=== PATIENT | male | born 1950 | race Caucasian/White ===

== ENCOUNTER 2018-01-17 18:41 | Emergency (ER) | payer OTHER ==
--- OUTSIDE RECORDS SUMMARY | 2018-01-17 18:43 | XMS REPORT | Clinical Summary ---
:1950 Author Organization [facility] Address [address] [place] [address] Care Team Providers Name Role Phone Asked, No Pcp Primary Care Provider Unavailable Allergies Active Allergy Reactions Severity Noted Date Comments No Known Drug Allergies 10/28/2015 Medications No known medications Active Problems Problem Noted Date History of rectal cancer 05/11/2017 Bleeding from anus 01/12/2016 Diarrhea 01/12/2016 Generalized abdominal pain 01/12/2016 Rectal cancer 10/28/2015 Encounters Date Type Specialty Care Team Description 12/14/2017 Hospital Encounter Radiology Yovani Whitfield MD 12/14/2017 Office Visit Cardiothoracic Yovani Whitfield Lung nodule Surgery MD Nain (Primary Dx) 12/13/2017 Telephone General Surgery Katie Whalen MA 11/21/2017 Orders Only Cardiothoracic Provider, Krista Hoyos MD 11/13/2017 Telephone Cardiothoracic Jesika Locke, Surgery MA 11/07/2017 Telephone Cardiothoracic Jesika Locke, Surgery MA 11/02/2017 Office Visit Cardiothoracic Yovani Whitfield Lung nodule Surgery MD Nain (Primary Dx) 09/29/2017 Documentation General Surgery Kassidy Vega NP-C 09/04/2017 Orders Only General Surgery Zoiegugurusamy, Rectal cancer Kassidy (Primary Dx) HARSH Edmondson 08/18/2017 Office Visit General Surgery Jacquelinesamy, Rectal cancer Kassidy (Primary Dx) HARSH Edmondson 08/18/2017 Orders Only General Surgery Kulwinder, History of rectal JOEY Hadley cancer (Primary Dx) 05/11/2017 Office Visit General Surgery Darron Shepard History of rectal MD Max cancer (Primary Dx) Kassidy Vega NP-C 02/09/2017 Office Visit General Surgery Darron Shepard Internal hemorrhoids with complication (Primary Dx); MD Max Other constipation; History of rectal cancer; Bleeding from anus after 01/16/2017 Family History Medical History Relation Name Comments Skin cancer Father No Known Problems Mother Relation Name Status Comments Father Mother Social History Tobacco Use Types Packs/Day Years Used Date Never Smoker Smokeless Tobacco: Never Used Alcohol Use Drinks/Week oz/Week Comments No Sex Assigned at Date Recorded Not on file Job Start Date Occupation Industry Not on file Not on file Not on file Travel History Travel Start Travel End No recent travel history available. Last Filed Vital Signs Vital Sign Reading Time Taken Blood Pressure 135/86 12/14/2017 9:36 AM CDT Pulse 60 12/14/2017 9:36 AM CDT Temperature 35.8 C (96.4 F) 12/14/2017 9:36 AM CDT Respiratory Rate 16 12/14/2017 9:36 AM CDT Oxygen Saturation 98% 12/14/2017 9:36 AM CDT Inhaled Oxygen Concentration - - Weight 86.3 kg (190 lb 3.2 oz) 12/14/2017 9:36 AM CDT Height 170.2 cm (5' 7") 12/14/2017 9:36 AM CDT Body Mass Index 29.79 12/14/2017 9:36 AM CDT Plan of Treatment Date Type Specialty Care Team Description 02/16/2018 Office Visit General Surgery Kassidy Vega NP-C [address] [facility] [address] [place] [id number] Health Maintenance Due Date Last Done Comments COLON CANCER SCREENING 2000 SHINGRIX VACCINE (1 of 2) 2000 ZOSTER VACCINE 2010 PNEUMOCOCCAL POLYSACCHARIDE VACCINE AGE 65 AND OVER 08/12/2015 PNEUMOCOCCAL-13 08/12/2015 INFLUENZA VACCINE 10/04/2017 Implants Implanted Type Area Computer Installer Device Shelf Model / Identifier Expiration Serial / Date Lot Stapler Endoscpc 18cm 20.4x29mm Intralmnl Crvd Circlr Ltxf - [id number] Surgical N/A: N/A ETHICON ENDO [id number] / Implanted: 10/28/2015 (Quantity not on file) Implants; SURGERY-ED / Expanders; Extenders; Surgical Wires Procedures Procedure Name Priority Date/Time Associated Comments Diagnosis CT CHEST W CONTRAST Routine 11/20/2017 CT CHEST W CONTRAST STAT 08/31/2017 9:50 AM History of rectal Results for this ABDOMEN W CONTRAST CDT cancer procedure are in PELVIS W CONTRAST the results section. ESTIMATED GFR Routine 08/31/2017 9:06 AM Results for this CDT procedure are in the results section. POC CREATININE Routine 08/31/2017 9:06 AM Results for this CDT procedure are in the results section. after 01/16/[address] Chest W Contrast (11/20/2017) Narrative Performed At CT Chest W Contrast Abdomen W Contrast Pelvis W Contrast (08/31/2017 9:50 AM CDT) Narrative Performed At EXAMINATION: [facility] CT CHEST W CONTRAST ABDOMEN W CONTRAST PELVIS W CONTRAST CLINICAL HISTORY: Z85.048 Personal history of other malignant neoplasm of rectumrectosigmoid junctionand anus, History of rectal cancer TECHNIQUE: Prior to and following intravenous injection of approximately 100 cc of Omnipaque 300, multiple helical axial images were obtained of the chest, abdomen and pelvis. Additional sagittal and coronal reformat images were acquired. All CT scan performed using radiation dose reduction techniques. Technical factors are evaluated and adjusted to ensure appropriate moderation of exposure. Automated dose management technology is applied to adjust the radiation dose to minimize expose whileachieving a diagnostic quality image. COMPARISON: None. FINDINGS: Chest: An approximately 4.7 mm right upper lobe pulmonary nodule is seen, series 3 image #59. There are 2 right middle lobe pulmonary nodules, series 2 image #64 and 74, with the larger nodule measuring approximately 4.7 mm. Two approximately 4 mm right lower lobe pulmonary nodules are seen, series 3 image #72. Scattered approximately 2 to 4 mm left lower lobe pulmonary nodules are seen, series 3 image #70, 74, 80 and 81. No pulmonary masses I5. There is no evidence of consolidation or pleural effusion.. The heart is normal in size. No pericardial effusion is seen. Scattered atherosclerotic coronary arteries calcifications are noted. Scattered atherosclerotic calcifications of the ectatic thoracic aorta is seen..However, there is no evidence of aortic aneurysm. The pulmonary vasculature is unremarkable. No evidence of mediastinum, hilar or axillary pathologic lymphadenopathy. Soft tissue and osseous structures are unremarkable. Abdomen: Liver: There is no intrahepatic biliary dilatation or enhancing mass. The liver is normal in attenuation, contour and size. Gallbladder: The gallbladder is mostly contracted but otherwise unremarkable.. Pancreas: The pancreas is normal in caliber, contour and attenuation. No pancreatic duct dilatation is seen. Spleen: Unremarkable. Kidneys and ureters: The kidneys function symmetrically. There is no enhancing renal lesion. No hydronephrosis or renal stone. The ureters are normal in course and caliber. Adrenal glands: Unremarkable. GI tract: A small right pelvic wall incisional hernia containing portion of small bowel loops is seen. There is no evidence of strangulation or bowel obstruction. The small bowel is otherwise normal in caliber. Postsurgical change of rectum and anastomosis is seen. No residual or recurrent tumor is seen. Scattered retained fecal debris is interbody colon. The colon is otherwise unremarkable. The appendix is normal. The stomach is unremarkable.. Ascites: None. Vasculature: Scattered atherosclerotic disease is seen abdomen vessels. Bones: Moderate multilevel degenerative change of the lumbar spine is noted Pelvis: Bladder: The urinary bladder is unremarkable. Genitalia:. An approximately 16 x 10 x 8.8 cm right hydrocele is noted. Limited evaluation of the prostate gland is unremarkable. Bones: Mixed sclerotic and lucencies are seen of the sacrum including sacral hernandes,, worrisome for metastasis. Retroperitoneum: Scattered atherosclerotic disease of the abdominal aorta is noted. The abdominal aorta is otherwise normal in course and caliber. The visceral and mesenteric vascular branches absent pattern.No retroperitoneal or mesenteric lymphadenopathy is seen.. IMPRESSION: Scattered indeterminate bilateral pulmonary nodules, pulmonary metastasis cannot be entirely excluded. Recommend clinical correlation and short follow-up with CT chest in 3 months for further evaluation. Findings worrisome for sacral metastasis. Recommend whole-body bone scan for further evaluation. No CT evidence of visceral metastasis or pathologic lymphadenopathy. Incidental note of a large right hydrocele. [facility] [id number] Procedure Note Interface, Radiology Results - 08/31/2017 11:32 AM CDT EXAMINATION: CT CHEST W CONTRAST ABDOMEN W CONTRAST PELVIS W CONTRAST CLINICAL HISTORY: Z85.048 Personal history of other malignant neoplasm of rectum rectosigmoid junction and anus, History of rectal cancer TECHNIQUE: Prior to and following intravenous injection of approximately 100 cc of Omnipaque 300, multiple helical axial images were obtained of the chest, abdomen and pelvis. Additional sagittal and coronal reformat images were acquired. All CT scan performed using radiation dose reduction techniques. Technical factors are evaluated and adjusted to ensure appropriate moderation of exposure. Automated dose management technology is applied to adjust the radiation dose to minimize expose while achieving a diagnostic quality image. COMPARISON: None. FINDINGS: Chest: An approximately 4.7 mm right upper lobe pulmonary nodule is seen, series 3 image #59. There are 2 right middle lobe pulmonary nodules, series 2 image #64 and 74, with the larger nodule measuring approximately 4.7 mm. Two approximately 4 mm right lower lobe pulmonary nodules are seen, series 3 image #72. Scattered approximately 2 to 4 mm left lower lobe pulmonary nodules are seen, series 3 image #70, 74, 80 and 81. No pulmonary masses I5. There is no evidence of consolidation or pleural effusion.. The heart is normal in size. No pericardial effusion is seen. Scattered atherosclerotic coronary arteries calcifications are noted. Scattered atherosclerotic calcifications of the ectatic thoracic aorta is seen.. However, there is no evidence of aortic aneurysm. The pulmonary vasculature is unremarkable. No evidence of mediastinum, hilar or axillary pathologic lymphadenopathy. Soft tissue and osseous structures are unremarkable. Abdomen: Liver: There is no intrahepatic biliary dilatation or enhancing mass. The liver is normal in attenuation, contour and size. Gallbladder: The gallbladder is mostly contracted but otherwise unremarkable.. Pancreas: The pancreas is normal in caliber, contour and attenuation. No pancreatic duct dilatation is seen. Spleen: Unremarkable. Kidneys and ureters: The kidneys function symmetrically. There is no enhancing renal lesion. No hydronephrosis or renal stone. The ureters are normal in course and caliber. Adrenal glands: Unremarkable. GI tract: A small right pelvic wall incisional hernia containing portion of small bowel loops is seen. There is no evidence of strangulation or bowel obstruction. The small bowel is otherwise normal in caliber. Postsurgical change of rectum and anastomosis is seen. No residual or recurrent tumor is seen. Scattered retained fecal debris is interbody colon. The colon is otherwise unremarkable. The appendix is normal. The stomach is unremarkable.. Ascites: None. Vasculature: Scattered atherosclerotic disease is seen abdomen vessels. Bones: Moderate multilevel degenerative change of the lumbar spine is noted Pelvis: Bladder: The urinary bladder is unremarkable. Genitalia:. An approximately 16 x 10 x 8.8 cm right hydrocele is noted. Limited evaluation of the prostate gland is unremarkable. Bones: Mixed sclerotic and lucencies are seen of the sacrum including sacral hernandes,, worrisome for metastasis. Retroperitoneum: Scattered atherosclerotic disease of the abdominal aorta is noted. The abdominal aorta is otherwise normal in course and caliber. The visceral and mesenteric vascular branches absent pattern. No retroperitoneal or mesenteric lymphadenopathy is seen.. IMPRESSION: Scattered indeterminate bilateral pulmonary nodules, pulmonary metastasis cannot be entirely excluded. Recommend clinical correlation and short follow-up with CT chest in 3 months for further evaluation. Findings worrisome for sacral metastasis. Recommend whole-body bone scan for further evaluation. No CT evidence of visceral metastasis or pathologic lymphadenopathy. Incidental note of a large right hydrocele. [facility] [id number] Performing Organization Address City/[facility]/Zipcode Phone Number [facility] [address] [place] [phone] Estimated GFR (08/31/2017 9:06 AM CDT) GFR Non Af Amer 60 mL/min/1.73 m2 [facility] DEPARTMENT OF PATHOLOGY AND GENOMIC MEDICINE GFR Af Amer 73 mL/min/1.73 m2 [facility] DEPARTMENT OF Comment: PATHOLOGY AND GENOMIC Chronic kidney disease: <60 mL/min/1.73m2 MEDICINE Kidney failure: <15 mL/min/1.73m2 The estimated GFR is calculated from the IDMS-traceable Modification of Diet in Renal Disease Equation. The accuracy of the calculation is poor when the creatinine is normal. Calculated values >90 mL/min/1.73m2 are not reported. This equation has not been validated in children (<18 years), women, the elderly (>70 years), or ethnic groups other than Caucasians and Americans. Specimen Blood Performing Organization Address [facility] Phone Number [facility] DEPARTMENT OF PATHOLOGY AND [address] [place] [phone] [employer] MEDICINE POC creatinine (08/31/2017 9:06 AM CDT) POC creatinine 1.2 0.7 - 1.2 mg/dl [facility] DEPARTMENT OF PATHOLOGY Comment: AND [employer] Meter ID: [id number] Emergency Vehicle Technician: Ralph De La O Specimen Blood Performing Organization Address [facility]/Zipcode Phone Number [facility] DEPARTMENT OF PATHOLOGY AND [address] [place] [phone] [employer] MEDICINE after 01/16/2017 Insurance Payer Benefit Plan / Group Subscriber ID Type Phone Address MEDICARE MEDICARE PART A xxxxxxxxxx Medicare [place], [place] [employer] PPO xxxxxxxxxx-xx PPO [address] ([place] [address] Advance Directives Patient has advance care planning documents on file. For more information, please contact:Barrington [id number] [place] [address]
--- OUTSIDE RECORDS SUMMARY | 2018-01-17 18:44 | XMS REPORT | Continuity of Care Document ---
:1950 Author Organization Interface Problems Problem Status Onset Classification Date Comments Source Date Reported ILEOSTOMY Active [facility] 6 [facility] Ileostomy Active Problem 12/28/[address] [facility] ILEOSTOMY Active [facility] Medications Medication Details Route Status Patient Ordering Order Source Instructions Provider Date Enoxaparin 40 mg, 0.4 mL, No Longer [facility] Route: SUB-Q, Active 2015 Medical Drug form: INJ, Center [id number], Dosing Weight 79.091, kg, Start date: 12/23/15 6:00:00 CDT, Duration: 30 day, Stop date: 01/21/16 6:00:00 CSTNotes: (Same as: Lovenox) gabapentin 300 300 mg, 1 cap, No Longer [facility] MG Oral Capsule Route: PO, Drug Active 2015 Medical form: CAP, Q8H, Center Dosing Weight 79.091, kg, (CrCl > 60 ml/min), Start date: 12/23/15 0:00:00 CDT, Duration: 30 day, Stop date: 01/21/16 16:00:00 CSTNotes: (Same as: Neurontin) Ofirmev 1,000 mg, 100 Active [facility] mL, Route: IVPB, 2015 Medical Drug form: INJ, Center Q6H, Dosing Weight 79.091, kg, for > or=50 kg, Start date: 12/22/15 18:00:00 CDT, Duration: 3 day, Stop date: 12/25/15 12:00:00 CDTNotes: Infuse over 15 minutes Do not exceed 4gm/day of acetaminophen MEDICATION WASTE Product Size: 1000 mg Product Wasted: ___ mg Naloxone 0.4 mg, Route: Inactive [place] IVP, Q2MIN, 2015 Medical Dosing Weight Center 79.091, kg, PRN Narcotic Reversal, Start date: 12/22/15 17:42:00 CDT, Duration: 8 doses or times, Stop date: Limited # of times Hydromorphone 0.5 mg, Route: Inactive [facility] IVP, Q5Min, 2016 Medical Dosing Weight Center 79.091, kg, PRN Pain Score 7-10, Start date: 12/22/15 17:42:00 CDT, Duration: 4 doses or times, Stop date: Limited # of times Flumazenil 0.2 mg, Route: Inactive [place] IVP, PRN, Dosing 2016 Medical Weight 79.091, Center kg, PRN Benzodiazepine Reversal, Initial dose, Start date: 12/22/15 17:42:00 CDT, Duration: 30 day, Stop date: 01/21/16 16:41:00 APPLIED STATISTICIAN Ondansetron 4 mg, Route: Inactive [facility] IVP, ONCE, 2016 Medical Dosing Weight Center 79.091, kg, PRN Nausea & Vomiting, Start date: 12/22/15 17:42:00 CDT Labetalol 10 mg, Route: Inactive [facility] IVP, Q5Min, 2016 Medical Dosing Weight Center 79.091, kg, PRN Elevated BP, Start date: 12/22/15 17:42:00 CDT, Duration: 5 doses or times, Stop date: Limited # of times Oxycodone 5 mg, Route: PO, Inactive [place] Drug form: TAB, 2016 Medical Q4H, Dosing Center Weight 79.091, kg, PRN Pain Score 4-6, Start date: 12/22/15 17:42:00 CDT, Duration: 30 day, Stop date: 01/21/16 17:41:00 APPLIED STATISTICIAN Hydralazine 10 mg, Route: Inactive [facility] IVP, Q20Min, 2016 Medical Dosing Weight Center 79.091, kg, PRN Elevated BP, Start date: 12/22/15 17:42:00 CDT, Duration: 2 doses or times, Stop date: Limited # of times Saline Flush 10 ml, Route: No Longer [place] 0.9% IVP, Drug Form: Active 2016 Medical INJ, Dosing Center Weight 79.091, kg, PRN, PRN Line Flush, Start date: 12/22/15 17:26:00 CDT, Duration: 30 day, Stop date: 01/21/16 16:25:00 CSTNotes: (Same as: BD Posiflush) D5W 1/2NS + KCL 1,000 mL, Rate: No Longer [place] 20mEq/L 1000ml 50 ml/hr, Infuse Active 2015 Medical (Premix) 1,000 over: 20 hr, Center mL Route: IV, Dosing Weight 79.091 kg, Total Volume: 1,000, Start date: 12/22/15 17:26:00 CDT, Stop date: 01/21/16 17:25:00 APPLIED STATISTICIAN Oxycodone 5 mg, 1 tab, No Longer [place] Hydrochloride 5 Route: PO, Drug Active 2015 Medical MG Oral Tablet form: TAB, Q4H, Center Dosing Weight 79.091, kg, PRN Pain Score 4-6, Start date: 12/22/15 17:26:00 CDT, Duration: 30 day, Stop date: 01/21/16 17:25:00 CSTNotes: (Same as: Roxicodone) Ondansetron 4 mg, 2 mL, No Longer [place] Route: IVP, Drug Active 2015 Medical form: INJ, Q6H, Center Dosing Weight 79.091, kg, PRN Nausea & Vomiting, Start date: 12/22/15 17:26:00 CDT, Duration: 30 day, Stop date: 01/21/16 17:25:00 CSTNotes: (Same as: Zofran) MEDICATION WASTE Product Size: 4 mg Product Wasted: ___ mg Hydromorphone 0.2 mg, 0.1 mL, No Longer [place] Route: IVP, Drug Active 2015 Medical form: INJ, Q2H, Center Dosing Weight 79.091, kg, PRN Pain Score 4-6, Start date: 12/22/15 17:26:00 CDT, Duration: 30 day, Stop date: 01/21/16 17:25:00 CSTNotes: (Same as: Dilaudid) bupivacaine 20 mL, Route: Inactive [place] liposome InFILtration(loc 2016 Medical al), Drug Form: Center INJ, ONCE, Start date: 12/22/15 15:21:00 CDT, Stop date: 12/22/15 15:21:00 CDTNotes: (Same as: Exparel) NOT FOR IV use Postoperative analgesia: Infiltration (local): Dose is based on surgical site and volume required to cover the area (in general, the maximum total dose is 266 mg). Bunionectomy: 7 mL into the tissues surrounding the osteotomy and 1 mL into the subcutaneous tissue of the surgical site (total dose=8 mL [106 mg]) Hemorrhoidectomy : 30 mL (20 mL vial diluted with 10 mL NS) divided and administered as 6 injections of 5 mL each (total dose=30 mL [266 mg]) INVanz 1,000 mg, Route: Inactive [facility] IV, Drug form: 2015 Medical INJ, PRE OP, Center Start date: 12/22/15 6:00:00 CDT, Duration: 1 day, Stop date: 12/23/15 5:59:00 CDTNotes: (Same as: INVanz) Refrigerate. NOT COMPATIBLE WITH D5W. Stable in refrigerator for 24 hours MEDICATION WASTE Product Size: 1000 mg Product Wasted: ___ mg Allergies, Adverse Reactions, Alerts Substance Category Reaction Severity Reaction Status Date Comments Source type Reported Immunizations Immunization Date Given Site Status Last Updated Comments Source Results Order Name Results Value Reference Date Interpretation Comments Source Range CHEM PANEL Magnesium Lvl 1.9 1.8 - 2.4 12/24 [facility] mg/dL /2015 [facility] CHEM PANEL eGFR 94 12/24 Result Comment: The eGFR is calculated using the CKD-EPI formula. In most young, healthy individuals the eGFR will be >90 mL/ min/1.73m2. The eGFR declines with age. An eGFR of 60-89 may be normal in [facility] mL/min/ /2015 some populations, particularly the elderly, for whom the CKD-EPI formula has not been extensively validated. Use of the eGFR is not recommended in the following populations: [facility] 1.73m2 Center Individuals with unstable creatinine concentrations, including patients and those with serious co-morbid conditions. Patients with extremes in muscle mass or diet. The data above are obtained from the National Kidney Disease Education Program (NKDEP) which additionally recommends that when the eGFR is used in patients with extremes of body mass index for purposes of drug dosing, the eGFR should be multiplied by the estimated BMI. CHEM PANEL Calcium Lvl 8.5 8.5 - 10.5 12/24 [place] mg/dL [facility] CHEM PANEL AGAP 13.5 10.0 - 12/24 [place] meq/L 20. [facility] CHEM PANEL CO2 24 24 - 32 12/24 [place] meq/L [facility] CHEM PANEL Chloride Lvl 107 95 - 109 12/24 [facility] meq/L [facility] CHEM PANEL Creatinine 0.80 0.50 - 12/24 [place] Lvl mg/dL 1.40 [facility] CHEM PANEL Sodium Lvl 140 135 - 145 12/24 [facility] meq/L [facility] CHEM PANEL Potassium Lvl 4.5 3.5 - 5.1 12/24 [facility] meq/L [facility] CHEM PANEL Glucose Lvl 103 70 - 99 12/24 [facility] mg/dL [facility] CHEM PANEL BUN 12 7 - 22 12/24 [facility] mg/dL [facility] CHEM PANEL Phosphorus 3.2 2.5 - 4.5 12/24 [place] mg/dL [facility] HEMATOLOGY Lymphocytes # 1.7 1.0 - 5.5 12/24 [facility] K/[facility] /2015 [facility] HEMATOLOGY Monocytes # 0.5 0.0 - 0.8 12/24 [facility] K/[facility] HEMATOLOGY Eosinophils # 0.3 0.0 - 0.5 12/24 [facility] K/[facility] /2015 [facility] HEMATOLOGY Microcyte 1+ None Seen 12/24 [facility] *ABN* Center (12/25/15 3:43 AM) HEMATOLOGY Segs-Bands # 4.3 1.5 - 8.1 12/24 [facility] K/CM /2015 [facility] HEMATOLOGY Basophils 0.6 % 0.0 - 1.0 12/24 [facility] HEMATOLOGY Eosinophils 3.9 % 0.0 - 4.0 12/24 /2015 [facility] HEMATOLOGY Segs 63.6 % 45.0 - 12/24 [place] 75.0 [facility] HEMATOLOGY Lymphocytes 25.0 % 20.0 - 12/24 [place] 40.0 [facility] HEMATOLOGY Monocytes 6.9 % 2.0 - 12.0 12/24 [facility] HEMATOLOGY RDW 15.5 % 11.5 - 12/24 [place] 14.5 [facility] HEMATOLOGY Platelet 287 133 - 450 12/24 [facility] K/CMM [facility] HEMATOLOGY MCHC 33.0 32.0 - 12/24 [facility] g/dL 36.0 [facility] HEMATOLOGY MPV 8.6 fL 7.4 - 10.4 12/24 [facility] HEMATOLOGY MCV 75.6 fL 80.0 - 12/24 [place] 94.0 [facility] HEMATOLOGY MCH 24.9 pg 27.0 - 12/24 [place] 31.0 [facility] HEMATOLOGY RBC 5.51 4.70 - 12/24 [facility] M/CMM 6. [facility] HEMATOLOGY Hgb 13.7 14.0 - 12/24 [facility] g/dL 18.0 [facility] HEMATOLOGY Hct 41.7 % 42.0 - 12/24 [place] 54.0 [facility] HEMATOLOGY WBC 6.8 3.7 - 10.4 12/24 [facility] K/CM [facility] CHEM PANEL eGFR 68 12/23 Result Comment: The eGFR is calculated using the CKD-EPI formula. In most young, healthy individuals the eGFR will be >90 mL/ min/1.73m2. The eGFR declines with age. An eGFR of 60-89 may be normal in [facility] mL/min/ /2015 some populations, particularly the elderly, for whom the CKD-EPI formula has not been extensively validated. Use of the eGFR is not recommended in the following populations: [facility] 1.73m2 Center Individuals with unstable creatinine concentrations, including patients and those with serious co-morbid conditions. Patients with extremes in muscle mass or diet. The data above are obtained from the National Kidney Disease Education Program (NKDEP) which additionally recommends that when the eGFR is used in patients with extremes of body mass index for purposes of drug dosing, the eGFR should be multiplied by the estimated BMI. CHEM PANEL Glucose Lvl 105 70 - 99 12/23 [facility] mg/dL [facility] CHEM PANEL Creatinine 1.13 0.50 - 12/23 [facility] Lvl mg/dL 1.40 /2015 [facility] CHEM PANEL BUN 10 7 - 22 12/23 [facility] mg/dL [facility] CHEM PANEL Sodium Lvl 141 135 - 145 12/23 [facility] [place] meq/L /2015 [facility] CHEM PANEL Potassium Lvl 4.4 3.5 - 5.1 12/23 [place] meq/L [facility] CHEM PANEL Chloride Lvl 106 95 - 109 12/23 [place] meq/L [facility] CHEM PANEL Calcium Lvl 8.8 8.5 - 10.5 12/23 [place] mg/dL /2015 [facility] CHEM PANEL AGAP 12.4 10.0 - 12/23 [place] meq/L 20.0 [facility] CHEM PANEL CO2 27 24 - 32 12/23 [place] meq/L /2015 [facility] CHEM PANEL Magnesium Lvl 2.0 1.8 - 2.4 12/23 [place] mg/dL [facility] CHEM PANEL Phosphorus 2.0 2.5 - 4.5 12/23 [place] mg/dL [facility] HEMATOLOGY RDW 15.1 % 11.5 - 12/23 [place] 14.5 [facility] HEMATOLOGY Platelet 293 133 - 450 12/23 [facility] K/CMM [facility] HEMATOLOGY MCH 25.0 pg 27.0 - 12/23 [place] 31.0 [facility] HEMATOLOGY Hgb 14.2 14.0 - 12/23 [place] g/dL 18.0 [facility] HEMATOLOGY Hct 43.2 % 42.0 - 12/23 [place] 54.0 [facility] HEMATOLOGY WBC 9.2 3.7 - 10.4 12/23 [place] K/CMM /2016 [facility] HEMATOLOGY RBC 5.70 4.70 - 12/23 [place] M/CMM 6.10 [facility] HEMATOLOGY MCHC 33.0 32.0 - 12/23 [place] g/dL 36.0 [facility] HEMATOLOGY MCV 75.8 fL 80.0 - 12/23 [place] 94.0 2016 [facility] HEMATOLOGY MPV 8.8 fL 7.4 - 10.4 12/23 [place] /2016 [facility] HEMATOLOGY Monocytes 7.7 % 2.0 - 12.0 12/23 [place] 2016 [facility] HEMATOLOGY Monocytes # 0.7 0.0 - 0.8 12/23 [place] K/CMM /2016 [facility] HEMATOLOGY Segs 66.6 % 45.0 - 10 [place] 75.0 /2016 [facility] HEMATOLOGY Lymphocytes 23.5 % 20.0 - 12/23 [place] 40.0 /2016 [facility] HEMATOLOGY Basophils 0.6 % 0.0 - 1.0 12/23 [facility] HEMATOLOGY Segs-Bands # 6.1 1.5 - 8.1 12/23 [facility] HEMATOLOGY Lymphocytes # 2.1 1.0 - 5.5 12/23 [facility] HEMATOLOGY Eosinophils 1.6 % 0.0 - 4.0 12/23 [facility] HEMATOLOGY Basophils # 0.1 0.0 - 0.2 12/23 [facility] HEMATOLOGY Microcyte 1+ None Seen 12/23 [facility]* Center (12/24/15 3:46 AM) HEMATOLOGY Eosinophils # 0.1 0.0 - 0.5 12/23 [facility] CHEM PANEL Magnesium Lvl 1.9 1.8 - 2.4 12/22 [facility] mg/dL [facility] CHEM PANEL Phosphorus 2.7 2.5 - 4.5 12/22 [facility] mg/dL [facility] CHEM PANEL Magnesium Lvl 1.8 1.8 - 2.4 12/22 [facility] mg/dL [facility] CHEM PANEL Phosphorus 2.6 2.5 - 4.5 12/22 [facility] mg/dL [facility] ELECTROLYTES AGAP 14.5 10.0 - 12/22 [facility] meq/L 20.0 [facility] ELECTROLYTES Calcium Lvl 8.8 8.5 - 10.5 12/22 [facility] mg/dL 2016 [facility] ELECTROLYTES CO2 22 24 - 32 12/22 [facility] meq/L [facility] ELECTROLYTES Chloride Lvl 105 95 - 109 12/22 [facility] meq/L [facility] ELECTROLYTES Creatinine 1.17 0.50 - 12/22 [place] Lvl mg/dL 1.40 [facility] ELECTROLYTES Potassium Lvl 4.5 3.5 - 5.1 12/22 [facility] meq/L [facility] ELECTROLYTES Sodium Lvl 137 135 - 145 12/22 [facility] meq/L [facility] ELECTROLYTES eGFR 65 12/22 Result Comment: The eGFR is calculated using the CKD-EPI formula. In most young, healthy individuals the eGFR will be > 90 mL/min/1.73m2. The eGFR declines with age. An eGFR of 60-89 may be normal in [facility] mL/min some populations, particularly the elderly, for whom the CKD-EPI formula has not been extensively validated. Use of the eGFR is not recommended in the following populations: Medical 1.73m2 Center Individuals with unstable creatinine concentrations, including patients and those with serious co-morbid conditions. Patients with extremes in muscle mass or diet. The data above are obtained from the National Kidney Disease Education Program (NKDEP) which additionally recommends that when the eGFR is used in patients with extremes of body mass index for purposes of drug dosing, the eGFR should be multiplied by the estimated BMI. ELECTROLYTES BUN 15 7 - 22 12/22 [facility] mg/dL [facility] ELECTROLYTES Glucose Lvl 159 70 - 99 12/22 [facility] mg/dL [facility] HEMATOLOGY Monocytes # 0.2 0.0 - 0.8 12/22 [facility] HEMATOLOGY Microcyte 1+ None Seen 12/22 [facility] Center (12/23/15 4:26 AM) HEMATOLOGY Lymphocytes # 0.7 1.0 - 5.5 12/22 [facility] HEMATOLOGY Eosinophils 0.4 % 0.0 - 4.0 12/22 [facility] HEMATOLOGY Monocytes 3.1 % 2.0 - 12.0 12/22 [facility] HEMATOLOGY Segs-Bands # 4.9 1.5 - 8.1 12/22 [facility] HEMATOLOGY Basophils 0.3 % 0.0 - 1.0 12/22 [facility] HEMATOLOGY Lymphocytes 11.6 % 20.0 - 12/22 [place] 40.0 [facility] HEMATOLOGY Segs 84.6 % 45.0 - 12/22 [place] 75.0 [facility] HEMATOLOGY RBC 5.37 4.70 - 12/22 [facility] M/[facility] 6. [facility] HEMATOLOGY Hgb 13.5 14.0 - 12/22 [facility] g/dL 18.0 [facility] HEMATOLOGY WBC 5.8 3.7 - 10.4 12/22 [facility] HEMATOLOGY MPV 8.8 fL 7.4 - 10.4 12/22 [facility] HEMATOLOGY MCH 25.2 pg 27.0 - 12/22 [facility] [place] 31.0 /2015 [facility] HEMATOLOGY MCHC 32.3 32.0 - 12/22 [place] g/dL 36.0 /2015 [facility] HEMATOLOGY RDW 15.2 % 11.5 - 12/22 [place] 14.5 /2015 [facility] HEMATOLOGY Platelet 222 133 - 450 12/22 [facility] K/CMM [facility] HEMATOLOGY Hct 41.9 % 42.0 - 12/22 [place] 54.0 /2015 [facility] HEMATOLOGY MCV 78.0 fL 80.0 - 12/22 [place] 94.0 /2015 [facility] CHEM PANEL Alk Phos 298 39 - 136 12/14 [place] unit/L /2015 [facility] CHEM PANEL Bili Total 0.3 0.2 - 1.3 12/14 [place] mg/dL [facility] CHEM PANEL Albumin Lvl 3.7 3.5 - 5.0 12/14 [place] g/dL [facility] CHEM PANEL Total Protein 7.6 6.4 - 8.4 12/14 [facility] g/dL [facility] CHEM PANEL AST 42 0 - 37 12/14 [place] unit/L [facility] CHEM PANEL ALT 105 0 - 65 12/14 [place] unit/L /2015 [facility] CHEM PANEL B/C Ratio 14 6 - 25 12/14 [facility] CHEM PANEL A/G Ratio 0.9 0.7 - 1.6 12/14 [facility] CHEM PANEL Globulin 3.9 2.7 - 4.2 12/14 [place] g/dL 2016 [facility] HEMATOLOGY INR 0.99 0.85 - 12/14 [place] 1.17 [facility] HEMATOLOGY PTT 30.3 s 22.9 - 12/14 [place] 35.8 /2016 [facility] HEMATOLOGY PT 13.3 s 12.0 - 12/14 [place] 14.7 [facility] HEMATOLOGY Eosinophils # 0.1 0.0 - 0.5 12/14 [facility] K/CMM [facility] Vital Signs Vital Sign Value Date Comments Source Systolic (mm Hg) 145 12/25/2015 [facility] Diastolic (mm Hg) 77 12/25/2015 [facility] Respitory Rate 18 12/25/2015 [facility] Heart Rate 66 12/25/2015 [facility] Temperature Oral (F) 97.3 F 12/25/2015 [facility] Respitory Rate 18 12/25/2015 [facility] Systolic (mm Hg) 141 12/25/2015 [facility] Diastolic (mm Hg) 81 12/25/2015 [facility] Temperature Oral (F) 97.4 F 12/25/2015 [facility] Heart Rate 63 12/25/2015 [facility] Systolic (mm Hg) 131 12/25/2015 [facility] Diastolic (mm Hg) 80 12/25/2015 [facility] Respitory Rate 18 12/25/2015 [facility] Heart Rate 67 12/25/2015 [facility] Temperature Oral (F) 97.5 F 12/25/2015 [facility] Height 165.1 cm 12/23/2015 [facility] BMI Calculated 28.98 12/23/2015 [facility] Weight 79 12/23/2015 [facility] Weight 79.091 12/15/2015 [facility] BMI Calculated 29.02 12/15/2015 [facility] Height 165.1 cm 12/15/2015 [facility] Encounters Location Location Encounter Encounter Reason Attending ADM DC Status Source Details Type Number For Provider Date Date Visit [facility] [id number] Darron Shepard 12/21 12/24 [facility] Andrea /2015 [facility] Procedures Procedure Code Date Perfomer Comments Source Colectomy [id number] [facility]
[2018-01-17] MEDS ORDERED: FLUORESCEIN SODIUM 0.6 MG/WRAP ONE (19:24)
[2018-01-17] MEDS ORDERED: TETRACAINE HCL 0.5% 2ML OPTH ONE (19:24)
--- NOTE | 2018-01-17 20:11 | EDPHYS ---
Physician Documentation [facility] Name: Tai Gonzales Jr Age: 67 yrs Sex: Male : 1950 Arrival Date: 01/17/2018 Time: 18:46 Bed 5 Private MD: Ruperto Grover ED Physician Romero Panda HPI: 01/17 20:02 This 67 yrs old Male presents to ER via Ambulatory with complaints of Redness gs of Eye. 20:02 The patient sustained a scratch. Onset: The symptoms/episode began/occurred acutely, at gs 15:00. Duration: the symptoms are continuous. Aggravated by blinking, Alleviated by nothing. Associated signs and symptoms: Pertinent positives:. Severity of symptoms: At their worst the symptoms were moderate in the emergency department the symptoms are unchanged. The patient has experienced similar episodes in the past, a few times. Historical: - Allergies: 18:57 No Known Allergies; aj - Home Meds: 18:57 None [Active]; aj - PMHx: 18:57 None; aj - PSHx: 18:57 colon resection; aj - Immunization history:: Last tetanus immunization: unknown, after speaking to family thinks his td is utd, instructed that he has 72 hours, offered booster declined. - Social history:: Smoking status: Patient/guardian denies using tobacco. - Ebola Screening: : Patient negative for fever greater than or equal to 101.5 degrees Fahrenheit, and additional compatible Ebola Virus Disease symptoms Patient denies exposure to infectious person Patient denies travel to an Ebola-affected area in the 21 days before illness onset No symptoms or risks identified at this time. ROS: 20:02 All other systems are negative. gs Exam: 20:02 Visual Acuity: I have reviewed the nursing documentation. gs 20:02 Head/Face: Normocephalic, atraumatic. ENT: Nares patent. No nasal discharge, no septal abnormalities noted. Tympanic membranes are normal and external auditory canals are clear. Oropharynx with no redness, swelling, or masses, exudates, or evidence of obstruction, uvula midline. Mucous membranes moist. Cardiovascular: Regular rate and rhythm with a normal S1 and S2. No gallops, murmurs, or rubs. Normal PMI, no JVD. No pulse deficits. Respiratory: Lungs have equal breath sounds bilaterally, clear to auscultation and percussion. No rales, rhonchi or wheezes noted. No increased work of breathing, no retractions or nasal flaring. Abdomen/GI: Soft, non-tender, with normal bowel sounds. No distension or tympany. No guarding or rebound. No evidence of tenderness throughout. MS/ Extremity: Pulses equal, no cyanosis. Neurovascular intact. Full, normal range of motion. Neuro: Awake and alert, GCS 15, oriented to person, place, time, and situation. Cranial nerves II-XII grossly intact. Motor strength 5/5 in all extremities. Sensory grossly intact. Cerebellar exam normal. Normal gait. 20:02 Eyes: Periorbital structures: appear normal, Pupils: no acute changes, Extraocular movements: intact throughout, Conjunctiva: exudate, injected, in the right eye, Corneas: abrasion, that is moderate sized, foreign body, is not appreciated, a fluorescein strip employed to appreciate the findings, Sclera: no acute changes, Anterior chamber: no acute changes. Vital Signs: 18:57 BP 134 / 82; Pulse 76; Resp 20; Temp 98.1; Pulse Ox 98% on R/A; Weight 83.91 kg; Height aj 5 ft. 7 in. (170.18 cm); 18:57 Body Mass Index 28.97 (83.91 kg, 170.18 cm) MDM: 19:28 Patient medically screened. 20:02 Data reviewed: vital signs, nurses notes. Administered Medications: 20:29 Drug: ERYTHromycin Ointment 1 application Route: Ophthalmic; Site: left eye; ak1 20:30 Follow up: Response: No adverse reaction; Pain is decreased ak1 Disposition: 01/17/18 20:10 Discharged to Home. Impression: Injury of conjunctiva and corneal abrasion without foreign body. - Condition is Stable. - Discharge Instructions: Corneal Abrasion, [id number]. - Prescriptions for Erythromycin 5 mg/gram (0.5 %) Ophthalmic Ointment - apply 1 centimeter by OPHTHALMIC route 2-3 times daily for 7 days; 1 tube. - Medication Reconciliation Form, Thank You Letter, Antibiotic Education, Prescription Opioid Use form. - Follow up: Private Physician; When: 2 - 3 days; Reason: Re-evaluation by your physician. Signatures: Angelica Gallagher RN RN aj Lucy Melendez RN RN ak1 Romero Panda MD MD gs Corrections: (The following items were deleted from the chart) 20:41 20:10 01/17/2018 20:10 Discharged to Home. Impression: Injury of conjunctiva and ak1 corneal abrasion without foreign body. Condition is Stable. Forms are Medication Reconciliation Form, Thank You Letter, Antibiotic Education, Prescription Opioid Use. Follow up: Private Physician; When: 2 - 3 days; Reason: Re-evaluation by your physician. gs
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
[2018-01-17] MEDS ORDERED: ERYTHROMYCIN 3.5GM OPTH OINT ONE (20:30)
[2018-01-17 20:54] VITALS: BP 134/82; TEMP 98.1; O2SAT 98
== END 2018-01-17 20:41 | disposition home or self-care (01) ==
LOC: ER 18:41
DX: S05.01XA Injury of conjunctiva and corneal abrasion without foreign body, right eye, initial encounter (principal)
CPT/HCPCS: 99283

== ENCOUNTER 2018-11-16 13:22 | Emergency (ER) | payer OTHER ==
--- OUTSIDE RECORDS SUMMARY | 2018-11-16 13:24 | XMS REPORT | Clinical Summary ---
:1950 Author Organization [facility] Address [address] [place] [id number] Care Team Providers Name Role Phone Asked, No Pcp Primary Care Provider Unavailable Allergies Active Allergy Reactions Severity Noted Date Comments No Known Drug Allergies 10/28/2015 Medications No known medications Active Problems Problem Noted Date History of rectal cancer 05/11/2017 Bleeding from anus 01/12/2016 Diarrhea 01/12/2016 Generalized abdominal pain 01/12/2016 Rectal cancer 10/28/2015 Encounters Date Type Specialty Care Team Description 08/17/2018 [facility], History of rectal cancer (Primary Dx); [facility] Perianal dermatitis HARSH Edmondson, Darron Santana MD 02/16/2018 [facility] History of [facility] cancer (Primary Dx); Kassidy Right hydrocele HARSH Edmondson 12/14/2017 Hospital Radiology Yovani Whitfield Encounter MD Nain 12/14/2017 Office Visit Cardiothoracic Surgery Yovani Whitfield Lung nodule MD Nain (Primary Dx) 12/13/2017 Telephone General Surgery Katie Whalen MA 11/21/2017 Orders Only Cardiothoracic Surgery Provider, MD Romain after 11/15/2017 Family History Medical History Relation Name Comments [...] Vital Signs Vital Sign Reading Time Taken Comments Blood Pressure 137/78 02/16/2018 10:19 AM [employer]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 Pulse 68 02/16/2018 10:19 AM [employer]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 Temperature 35.8 C (96.4 F) 12/14/2017 9:36 [...] Treatment Date Type Specialty Care Team Description 08/22/2019 Office Visit General Surgery Darron Shepard MD [address] [facility] [place] [address] [place] [id number] Health Maintenance Due Date Last Done Comments COLONOSCOPY SCREENING 2000 SHINGLES VACCINES (#1) 2000 65+ PNEUMOCOCCAL VACCINE (1 of 2 - PCV13) 08/12/2015 INFLUENZA VACCINE 10/04/2018 Implants Implanted Type Area Car Inspector Device Shelf Model / Identifier Expiration Serial / Date Lot Stapler Endoscpc 18cm 20.4x29mm Intralmnl Crvd Circlr Ltxf - [id number] Surgical N/A: N/A ETH[employer]ON ENDO [id number] / Implanted: 10/28/2015 at [facility] (Quantity not on file) Implants; SURGERY-ED / Expanders; Extenders; Surgical Wires Procedures Procedure Name Priority Date/Time Associated Diagnosis Comments CT CHEST W CONTRAST Routine 11/20/2017 after 11/15/[address] Chest W Contrast (11/20/2017) Narrative Performed At after 11/15/2017 Insurance Payer Benefit Plan / Subscriber ID Effective Dates Phone Address Type Group MEDICARE MEDICARE PART A xxxxxxxxxx 2015-Present [place], [place] Medicare CIGNA CIGNA PPO xxxxxxxxxx-xx 2017-Present PPO Advance Directives For more information, please contact: [phone] Type Date Recorded 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
--- OUTSIDE RECORDS SUMMARY | 2018-11-16 13:25 | XMS REPORT | Continuity of Care Document ---
:1950 Author Organization [employer] Care Team Providers Name Role Phone Minus Information [employer] Unavailable Unavailable Problems Problem Status Onset Classification Date Comments Source Date Reported ILEOSTOMY Active [place] [id number] [facility] Ileostomy Active Problem 12/28/2015 [facility] Medical (finding) Center ILEOSTOMY Active [facility] Medications Medication Details Route Status Patient Ordering Order Source Instructions Provider Date Enoxaparin 40 mg, 0.4 mL, No Longer [facility] Route: SUB-Q, Active 2015 Medical Drug form: INJ, Center [id number], Dosing Weight 79.091, kg, Start date: 12/23/15 6:00:00 CDT, Duration: 30 day, Stop date: 01/21/16 6:00:00 CSTNotes: (Same as: Lovenox) gabapentin 300 300 mg, 1 cap, No Longer [facility] MG Oral Capsule Route: PO, Drug Active 2015 Medical form: CAP, Q8H, Center Dosing Weight 79.091, kg, (CrCl > 60 ml/min), Start date: 12/23/15 0:00:00 CDT, Duration: 30 day, Stop date: 01/21/16 16:00:00 CSTNotes: (Same as: Neurontin) Ofirmev 1,000 mg, 100 Active [facility] mL, Route: IVPB, 2015 Medical Drug form: INJ, Center Q6H, Dosing Weight 79.091, kg, for > or=50 kg, Start date: 12/22/15 18:00:00 CDT, Duration: 3 day, Stop date: 12/25/15 12:00:00 CDTNotes: Infuse over 15 minutes Do not exceed 4gm/day of acetaminophen MEDICATION WASTE Product Size: 1000 mg Product Wasted: ___ mg Naloxone 0.4 mg, Route: Inactive [facility] IVP, Q2MIN, 2016 Medical Dosing Weight Center 79.091, kg, PRN Narcotic Reversal, Start date: 12/22/15 17:42:00 CDT, Duration: 8 doses or times, Stop date: Limited # of times Hydromorphone 0.5 mg, Route: Inactive [facility] IVP, Q5Min, 2016 Medical Dosing Weight Center 79.091, kg, PRN Pain Score 7-10, Start date: 12/22/15 17:42:00 CDT, Duration: 4 doses or times, Stop date: Limited # of times Flumazenil 0.2 mg, Route: Inactive [facility] IVP, PRN, Dosing 2016 Medical Weight 79.091, Center kg, PRN Benzodiazepine Reversal, Initial dose, Start date: 12/22/15 17:42:00 CDT, Duration: 30 day, Stop date: 01/21/16 16:41:00 LIBRARY ASSISTANT Ondansetron 4 mg, Route: Inactive [facility] IVP, ONCE, 2015 Medical Dosing Weight Center 79.091, kg, PRN Nausea & Vomiting, Start date: 12/22/15 17:42:00 CDT Labetalol 10 mg, Route: Inactive [facility] IVP, Q5Min, 2015 Medical Dosing Weight Center 79.091, kg, PRN Elevated BP, Start date: 12/22/15 17:42:00 CDT, Duration: 5 doses or times, Stop date: Limited # of times Oxycodone 5 mg, Route: PO, Inactive [facility] Drug form: TAB, 2016 Medical Q4H, Dosing Center Weight 79.091, kg, PRN Pain Score 4-6, Start date: 12/22/15 17:42:00 CDT, Duration: 30 day, Stop date: 01/21/16 17:41:00 LIBRARY ASSISTANT Hydralazine 10 mg, Route: Inactive [facility] IVP, Q20Min, 2015 Medical Dosing Weight Center 79.091, kg, PRN Elevated BP, Start date: 12/22/15 17:42:00 CDT, Duration: 2 doses or times, Stop date: Limited # of times Saline Flush 10 ml, Route: No Longer [place] 0.9% IVP, Drug Form: Active 2015 Medical INJ, Dosing Center Weight 79.091, kg, [...] 12/22/15 17:26:00 CDT, Stop date: 01/21/16 17:25:00 LIBRARY ASSISTANT Oxycodone 5 mg, 1 tab, No Longer [...] as: Dilaudid) bupivacaine 20 mL, Route: Inactive [facility] liposome InFILtration(loc 2016 Medical al), Drug Form: [place] INJ, ONCE, Start date: 12/22/15 15:21:00 CDT, [...] [266 mg]) INVanz 1,000 mg, Route: Inactive [facility] IV, Drug form: [address] [place] [address] INJ, PRE OP, Center Start date: 12/22/15 6:00:00 CDT, Duration: 1 day, Stop date: 12/23/15 5:59:00 CDTNotes: (Same as: INVanz) Refrigerate. NOT COMPATIBLE WITH D5W. Stable in refrigerator for 24 hours MEDICATION WASTE Product Size: 1000 mg Product Wasted: ___ mg Allergies, Adverse Reactions, Alerts No Known Medication Allergies Immunizations No Data Provided for This Section Results Order Name Results Value Reference Date Interpretation Comments Source Range CHEM PANEL Magnesium Lvl 1.9 1.8 - 2.4 12/24 [facility] CHEM PANEL eGFR 94 12/24 Result Comment: The Medical eGFR is Center calculated using the CKD-EPI formula. In most young, healthy individuals the eGFR will be >90 mL/min/1.73m2 . The eGFR declines with age. An eGFR of 60-89 may be normal in some populations, particularly the elderly, for whom the CKD-EPI formula has not been extensively validated. Use of the eGFR is not recommended in the following populations:< br/>
Kendra viduals with unstable creatinine concentration s, including patients and those with serious co-morbid conditions.<b r/>
Patie nts with extremes in muscle mass or diet.

The data above are obtained from the National Kidney Disease Education Program (NKDEP) which additionally recommends that when the eGFR is used in patients with extremes of body mass index for purposes of drug dosing, the eGFR should be multiplied by the estimated BMI. CHEM PANEL Calcium Lvl 8.5 8.5 - 10.5 12/24 [facility] CHEM PANEL AGAP 13.5 10.0 - 12/24 [place] 20. [facility] CHEM PANEL CO2 24 24 - 32 12/24 2015 [facility] CHEM PANEL Chloride Lvl 107 95 - 109 12/24 2015 [facility] CHEM PANEL Creatinine 0.80 0.50 - 12/24 [facility] Lvl 1.40 [facility] CHEM PANEL Sodium Lvl 140 135 - 145 12/24 2015 [facility] CHEM PANEL Potassium Lvl 4.5 3.5 - 5.1 12/[address] CHEM PANEL Glucose Lvl 103 70 - 99 12/24 2015 [facility] CHEM PANEL BUN 12 7 - 22 12/24 2015 [facility] CHEM PANEL Phosphorus 3.2 2.5 - 4.5 12/24 2015 [facility] HEMATOLOGY Lymphocytes # 1.7 1.0 - 5.5 12/24 2015 [facility] HEMATOLOGY Monocytes # 0.5 0.0 - 0.8 12/24 2015 [facility] HEMATOLOGY Eosinophils # 0.3 0.0 - 0.5 12/24 [facility]2015 [facility] HEMATOLOGY Microcyte 1+ None Seen 12/24 [facility] *ABN* /2015 Medical (12/25/15 3:43 AM) [facility] HEMATOLOGY Segs-Bands # 4.3 1.5 - 8.1 12/24 2015 [facility] HEMATOLOGY Basophils 0.6 0.0 - 1.0 12/24 2015 [facility] HEMATOLOGY Eosinophils 3.9 0.0 - 4.0 12/24 2015 [facility] HEMATOLOGY Segs 63.6 45.0 - 12/24 [place] 75.0 [facility] HEMATOLOGY Lymphocytes 25.0 20.0 - 12/24 [place] 40.0 [facility] HEMATOLOGY Monocytes 6.9 2.0 - 12.0 12/24 2015 [facility] HEMATOLOGY RDW 15.5 11.5 - 12/24 [facility] 14.5 [facility] HEMATOLOGY Platelet 287 133 - 450 12/24 [facility] HEMATOLOGY MCHC 33.0 32.0 - 12/24 [place] 36.0 [facility] HEMATOLOGY MPV 8.6 7.4 - 10.4 12/24 [facility] HEMATOLOGY MCV 75.6 80.0 - 12/24 [place] 94.0 [facility] HEMATOLOGY MCH 24.9 27.0 - 12/24 [place] 31.0 [facility] HEMATOLOGY RBC 5.51 4.70 - 12/24 [place] 6.10 [facility] HEMATOLOGY Hgb 13.7 14.0 - 12/24 [place] 18.0 [facility] HEMATOLOGY Hct 41.7 42.0 - 12/24 [place] 54.0 [facility] HEMATOLOGY WBC 6.8 3.7 - 10.4 12/24 [facility] CHEM PANEL eGFR 68 12/23 Result Comment: The [facility] eGFR is Center calculated using the CKD-EPI formula. In most young, healthy individuals the eGFR will be >90 mL/min/1.73m2 . The eGFR declines with age. An eGFR of 60-89 may be normal in some populations, particularly the elderly, for whom the CKD-EPI formula has not been extensively validated. Use of the eGFR is not recommended in the following populations:< br/>
Kendra viduals with unstable creatinine concentration s, including patients and those with serious co-morbid conditions.<b r/>
Patie nts with extremes in muscle mass or diet.

The data above are obtained from the National Kidney Disease Education Program (NKDEP) which additionally recommends that when the eGFR is used in patients with extremes of body mass index for purposes of drug dosing, the eGFR should be multiplied by the estimated BMI. CHEM PANEL Glucose Lvl 105 70 - 99 12/23 [facility] CHEM PANEL Creatinine 1.13 0.50 - 12/23 [facility] Lvl 1.40 /2015 [facility] CHEM PANEL BUN 10 7 - 22 12/23 [facility] CHEM PANEL Sodium Lvl 141 135 - 145 12/23 [facility] CHEM PANEL Potassium Lvl 4.4 3.5 - 5.1 12/23 [facility] CHEM PANEL Chloride Lvl 106 95 - 109 12/23 [facility] CHEM PANEL Calcium Lvl 8.8 8.5 - 10.5 12/23 [facility] CHEM PANEL AGAP 12.4 10.0 - 12/23 [place] 20.0 [facility] CHEM PANEL CO2 27 24 - 32 10 [facility] CHEM PANEL Magnesium Lvl 2.0 1.8 - 2.4 12/23 [facility] CHEM PANEL Phosphorus 2.0 2.5 - 4.5 12/23 [facility] HEMATOLOGY RDW 15.1 11.5 - 12/23 [place] 14.5 /2015 [facility] HEMATOLOGY Platelet 293 133 - 450 12/23 [facility] HEMATOLOGY MCH 25.0 27.0 - 12/23 [place] 31.0 [facility] HEMATOLOGY Hgb 14.2 14.0 - 12/23 [place] 18.0 [facility] HEMATOLOGY Hct 43.2 42.0 - 12/23 [place] 54.0 [facility] HEMATOLOGY WBC 9.2 3.7 - 10.4 12/23 [facility] HEMATOLOGY RBC 5.70 4.70 - 12/23 [place] 6. [facility] HEMATOLOGY MCHC 33.0 32.0 - 12/23 [place] 36.0 2016 [facility] HEMATOLOGY MCV 75.8 80.0 - 12/23 [place] 94.0 [facility] HEMATOLOGY MPV 8.8 7.4 - 10.4 12/23 [facility] HEMATOLOGY Monocytes 7.7 2.0 - 12.0 12/23 [facility] HEMATOLOGY Monocytes # 0.7 0.0 - 0.8 12/23 [facility] HEMATOLOGY Segs 66.6 45.0 - 12/23 [place] 75.0 /2016 [facility] HEMATOLOGY Lymphocytes 23.5 20.0 - 12/23 [place] 40.0 2016 [facility] HEMATOLOGY Basophils 0.6 0.0 - 1.0 12/23 [facility] HEMATOLOGY Segs-Bands # 6.1 1.5 - 8.1 12/23 [facility] HEMATOLOGY Lymphocytes # 2.1 1.0 - 5.5 12/23 [facility] HEMATOLOGY Eosinophils 1.6 0.0 - 4.0 12/23 [facility] HEMATOLOGY Basophils # 0.1 0.0 - 0.2 12/23 [facility] HEMATOLOGY Microcyte 1+ None Seen 12/23 [facility] *ABN* [facility] (12/24/15 3:46 AM) [facility] HEMATOLOGY Eosinophils # 0.1 0.0 - 0.5 12/23 [facility] CHEM PANEL Magnesium Lvl 1.9 1.8 - 2.4 12/22 [facility] CHEM PANEL Phosphorus 2.7 2.5 - 4.5 12/22 [facility] CHEM PANEL Magnesium Lvl 1.8 1.8 - 2.4 12/22 [facility] CHEM PANEL Phosphorus 2.6 2.5 - 4.5 12/22 [facility] ELECTROLYTES AGAP 14.5 10.0 - 12/22 [facility] 20.0 [facility] ELECTROLYTES Calcium Lvl 8.8 8.5 - 10.5 12/22 [facility] ELECTROLYTES CO2 22 24 - 32 12/22 [facility] ELECTROLYTES Chloride Lvl 105 95 - 109 12/22 [facility] ELECTROLYTES Creatinine 1.17 0.50 - 12/22 [facility] Lvl 1.40 [facility] ELECTROLYTES Potassium Lvl 4.5 3.5 - 5.1 12/22 [facility] ELECTROLYTES Sodium Lvl 137 135 - 145 12/22 [facility]2015 [facility] ELECTROLYTES eGFR 65 12/22 [facility] Comment: [facility] eGFR is Center calculated using the CKD-EPI formula. In most young, healthy individuals the eGFR will be >90 mL/min/1.73m2 . The eGFR declines with age. An eGFR of 60-89 may be normal in some populations, particularly the elderly, for whom the CKD-EPI formula has not been extensively validated. Use of the eGFR is not recommended in the following populations:< br/>
Kendra viduals with unstable creatinine concentration s, including patients and those with serious co-morbid conditions.<b r/>
Patie nts with extremes in muscle mass or diet.

The data above are obtained from the National Kidney Disease Education Program (NKDEP) which additionally recommends that when the eGFR is used in patients with extremes of body mass index for purposes of drug dosing, the eGFR should be multiplied by the estimated BMI. ELECTROLYTES BUN 15 7 - 22 12/22 [facility] ELECTROLYTES Glucose Lvl 159 70 - 99 12/22 [facility] HEMATOLOGY Monocytes # 0.2 0.0 - 0.8 12/22 [facility] HEMATOLOGY Microcyte 1+ None Seen 12/22 [facility] *ABN* /2015 [facility] (12/23/15 4:26 AM) [facility] HEMATOLOGY Lymphocytes # 0.7 1.0 - 5.5 12/22 [facility] HEMATOLOGY Eosinophils 0.4 0.0 - 4.0 12/22 [facility] HEMATOLOGY Monocytes 3.1 2.0 - 12.0 12/22 [facility] HEMATOLOGY Segs-Bands # 4.9 1.5 - 8.1 12/22 [facility] HEMATOLOGY Basophils 0.3 0.0 - 1.0 12/22 [facility] HEMATOLOGY Lymphocytes 11.6 20.0 - 12/22 [place] 40.0 [facility] HEMATOLOGY Segs 84.6 45.0 - 12/22 [place] 75.0 [facility] HEMATOLOGY RBC 5.37 4.70 - 12/22 [place] 6. [facility] HEMATOLOGY Hgb 13.5 14.0 - 12/22 [place] 18.0 [facility] HEMATOLOGY WBC 5.8 3.7 - 10.4 12/22 [facility] HEMATOLOGY MPV 8.8 7.4 - 10.4 12/22 [facility] HEMATOLOGY MCH 25.2 27.0 - 12/22 [place] 31.0 [facility] HEMATOLOGY MCHC 32.3 32.0 - 12/22 [place] 36.0 [facility] HEMATOLOGY RDW 15.2 11.5 - 12/22 [place] 14.5 [facility] HEMATOLOGY Platelet 222 133 - 450 12/22 [facility] HEMATOLOGY Hct 41.9 42.0 - 12/22 [place] 54.0 [facility] HEMATOLOGY MCV 78.0 80.0 - 12/22 [place] 94.0 [facility] CHEM PANEL Alk Phos 298 39 - 136 12/14 [facility] CHEM PANEL Bili Total 0.3 0.2 - 1.3 12/14 [facility] CHEM PANEL Albumin Lvl 3.7 3.5 - 5.0 12/14 [facility] CHEM PANEL Total Protein 7.6 6.4 - 8.4 12/14 [facility] CHEM PANEL AST 42 0 - 37 12/14 2015 [facility] CHEM PANEL ALT 105 0 - 65 12/14 2015 [facility] CHEM PANEL B/C Ratio 14 6 - 25 12/14 [facility] CHEM PANEL A/G Ratio 0.9 0.7 - 1.6 12/14 [facility] CHEM PANEL Globulin 3.9 2.7 - 4.2 12/14 [facility] HEMATOLOGY INR 0.99 0.85 - 12/14 [facility] 1.17 [facility] HEMATOLOGY PTT 30.3 22.9 - 12/14 [place] 35.8 /2015 [facility] HEMATOLOGY PT 13.3 12.0 - 12/14 [place] 14.7 [facility] HEMATOLOGY Eosinophils # 0.1 0.0 - 0.5 12/14 [facility] Pathology Reports No Data Provided for This Section Diagnostic Reports No Data Provided for This Section Consultation Notes No Data Provided for This Section Discharge Summaries No Data Provided for This Section History and Physicals No Data Provided for This Section Vital Signs Vital Sign Value Date Comments Source Systolic (mm Hg) 145 12/25/2015 [facility] Diastolic (mm Hg) 77 12/25/2015 [facility] Respitory Rate 18 12/25/2015 [facility] Heart Rate 66 12/25/2015 [facility] Temperature Oral (F) 97.3 F 12/25/2015 [facility] Respitory Rate 18 12/25/2015 [facility] Systolic (mm Hg) 141 12/25/2015 [facility] Diastolic (mm Hg) 81 12/25/2015 [facility] Temperature Oral (F) 97.4 F 12/25/2015 [facility] Heart Rate 63 12/25/2015 [facility] Systolic (mm Hg) 131 12/25/2015 [facility] Diastolic (mm Hg) 80 12/25/2015 [facility] Respitory Rate 18 12/25/2015 [facility] Heart Rate 67 12/25/2015 [facility] Temperature Oral (F) 97.5 F 12/25/2015 [facility] Height 165.1 cm 12/23/2015 [facility] BMI Calculated 28.98 12/23/2015 [facility] Weight 79 12/23/2015 [facility] Weight 79.091 12/15/2015 [facility] BMI Calculated 29.02 12/15/2015 [facility] Height 165.1 cm 12/15/2015 [facility] Encounters Location Location Encounter Encounter Reason Attending ADM DC Status Source Details Type Number For Provider Date Date Visit [facility] [id number] Darron Shepard 12/21 12/24 [facility] Procedures Procedure Code Date Perfomer Comments Source Colectomy [id number] [facility] Assessment and Plan Assessment and Plan Date Source Extracted from:Title: Clinical Document 12/25/2015 [facility] Author: Domenico Gillespie MD Date: 12/25/15 Admit date: 12/22/2015 Discharge date: 12/25/2015 Admission diagnosis: Loop ileostomy s/p LAR Discharge diagnosis: Same Hospital course: The patient was admitted loop ileostomy takedown. The patient tolerated the procedure well and was sent to the floor for recovery where he regained bowel function and was started on a d iet. The patient's pain is wel controlled on oral medication and he is ambulating in the halls and tolerating a diet. The patient will be discharged to home with instructions to follow up in 1-2 weeks. Domenico Peguero MD Extracted from:Title: Clinical Document Author: Domenico Gillespie MD Date: 12/24/15 Colorectal Progress NOTE No acute events. Denies N/V/F/C. He has had flatus an bowel movement AFVSS AAOx 3 RRR NTND, soft, wound clean dry and intact No c/c/e A/P S/p lap ileostomy closure POD #2 1. Soft diet 2. OOB ambulate 3. Multimodal pain therapy 4. SCDs and lovenox Plan of Care No Data Provided for This Section Social History Social History Date Source Social History TypeResponse 12/22/2015 [facility] Smoking Status Never smoker; Exposure to Tobacco Smoke None; Cigarette Smoking Last 365 Days No; Reg Smoking Cessation Counseling No Family History No Data Provided for This Section Advance Directives No Data Provided for This Section Functional Status No Data Provided for This Section
--- NOTE | 2018-11-16 15:57 | EDPHYS ---
Physician Documentation [facility] Name: Tai Gonzales Jr Age: 68 yrs Sex: Male : 1950 Arrival Date: 11/16/2018 Time: 13:25 Bed 6 Private MD: ED Physician Hugh Mckeon HPI: 11/16 15:26 This 68 yrs old Male presents to ER via Ambulatory with complaints of Suture cp Recheck. 15:26 Patient presents to ED for recheck of: surgical wound. The affected area is on the cp scrotal. 15:26 Patient reports having surgery for hydrocele 2 days ago and noticing drain that was in cp place has come out. Surgery was performed by DR Potter. Historical: - Allergies: 13:37 No Known Allergies; hb - Immunization history:: Adult Immunizations up to date. - Social history:: Smoking status: Patient/guardian denies using tobacco. - Ebola Screening: : No symptoms or risks identified at this time. ROS: 15:30 Constitutional: Negative for body aches, chills, fever, poor PO intake. cp 15:30 Eyes: Negative for injury, pain, redness, and discharge. cp 15:30 ENT: Negative for drainage from ear(s), ear pain, sore throat, difficulty swallowing, difficulty handling secretions. 15:30 Cardiovascular: Negative for chest pain, palpitations. 15:30 Respiratory: Negative for cough, shortness of breath, wheezing. 15:30 Abdomen/GI: Positive for constipation, Negative for abdominal pain, nausea and vomiting, diarrhea, black/tarry stool, rectal bleeding. 15:30 Back: Negative for decreased range of motion, pain at rest, pain with movement. 15:30 : Negative for hematuria, burning with urination, bladder incontinence. 15:30 Skin: Negative for rash. 15:30 Neuro: Negative for altered mental status, headache, weakness. 15:30 All other systems are negative. Exam: 15:40 Constitutional: The patient appears in no acute distress, alert, awake, cp non-diaphoretic, non-toxic, well developed, well nourished. 15:40 Head/Face: Normocephalic, atraumatic. cp 15:40 Eyes: Periorbital structures: appear normal, Conjunctiva: normal, no exudate, no injection, Sclera: no appreciated abnormality, Lids and lashes: appear normal. 15:40 ENT: External ear(s): are unremarkable, Nose: is normal, Mouth: Lips: moist, Oral mucosa: pink and intact, moist. 15:40 Chest/axilla: Inspection: normal. 15:40 Cardiovascular: Rate: normal. 15:40 Respiratory: the patient does not display signs of respiratory distress, Respirations: normal, no use of accessory muscles, labored breathing, is not present, Breath sounds: are clear throughout, no decreased breath sounds, no stridor, no wheezing. 15:40 Abdomen/GI: Inspection: abdomen appears normal, Bowel sounds: active, all quadrants, Palpation: abdomen is soft and non-tender, in all quadrants, voluntary guarding, is not appreciated, involuntary guarding, is not appreciated. 15:40 : Male external genitalia: swelling, scrotal, that is mild, noted horizontal scrotal surgical incision that appears w/o erythema or drainage. there is a Samson drain attached by single suture to scrotal wall that is not in place inside incision. Vital Signs: 13:37 BP 129 / 86; Pulse 49; Resp 16; Temp 97.2; Pulse Ox 100% on R/A; Weight 83.01 kg; hb Height 5 ft. 7 in. (170.18 cm); Pain 2/10; 15:33 Pulse 60; Resp 18; Pulse Ox 100% on R/A; mg2 16:20 BP 154 / 95; Pulse 60; Resp 18; Temp 98; Pulse Ox 100% on R/A; mg2 13:37 Body Mass Index 28.66 (83.01 kg, 170.18 cm) hb MDM: 15:25 Patient medically screened. cp 15:45 Physician consultation: DR Jsaon Potter, urologist, concerning appearance of surgical cp wound and surgical drain. Recommends to go ahead and remove drain since it is no longer in place in surgical wound. Instruct patient to follow post surgery activity instructions and return to clinic as scheduled. 15:55 Data reviewed: vital signs, nurses notes, and as a result, I will discharge patient. cp 15:55 Counseling: I had a detailed discussion with the patient and/or guardian regarding: the cp historical points, exam findings, and any diagnostic results supporting the discharge/admit diagnosis, the need for outpatient follow up, a urologist, to return to the emergency department if symptoms worsen or persist or if there are any questions or concerns that arise at home. 11/16 15:48 Order name: Suture Removal: remove suture attaching samson drain only; Complete Time: cp 16:17 Administered Medications: No medications were administered Disposition: 19:03 Co-signature as Attending Physician, Hugh Mckeon MD. rn Disposition: 11/16/18 15:56 Discharged to Home. Impression: Encounter for change or removal of surgical wound dressing. - Condition is Stable. - Discharge Instructions: How to Change Your Dressing, Wound Care. - Medication Reconciliation Form, Thank You Letter, Antibiotic Education, Prescription Opioid Use form. - Follow up: Private Physician; When: DR Jason Potter as scheduled; Reason: Wound Recheck. - Problem is new. - Symptoms have improved. Signatures: Hugh Mckeon MD MD rn Alli Glasgow PA PA cp Baxter, Heather, RN RN Guanakito Pedroza RN RN [facility]: (The following items were deleted from the chart) 16:21 15:56 11/16/2018 15:56 Discharged to Home. Impression: Encounter for change or removal mg2 of surgical wound dressing. Condition is Stable. Forms are Medication Reconciliation Form, Thank You Letter, Antibiotic Education, Prescription Opioid Use. Follow up: Private Physician; When: DR Jason Potter as scheduled; Reason: Wound Recheck. Problem is new. Symptoms have improved. cp
--- NOTE | 2018-11-16 15:57 | ER ---
Nurse's Notes [facility] Name: Tai Gonzales Jr Age: 68 yrs Sex: Male : 1950 Arrival Date: 11/16/2018 Time: 13:25 Bed 6 Private MD: Diagnosis: Encounter for change or removal of surgical wound dressing Presentation: 11/16 13:33 Presenting complaint: Had hydrocele surgery on 11/14, concerned sutures torn. Transition hb of care: patient was not received from another setting of care. Onset of symptoms was November 16, 2018. Risk Assessment: Do you want to hurt yourself or someone else? Patient reports no desire to harm self or others. Initial Sepsis Screen: Does the patient meet any 2 criteria? No. Patient's initial sepsis screen is negative. Does the patient have a suspected source of infection? No. Patient's initial sepsis screen is negative. Care prior to arrival: None. 13:33 Method Of Arrival: Ambulatory hb 13:33 Acuity: MONI 4 hb Historical: - Allergies: 13:37 No Known Allergies; hb - Immunization history:: Adult Immunizations up to date. - Social history:: Smoking status: Patient/guardian denies using tobacco. - Ebola Screening: : No symptoms or risks identified at this time. Screenin:54 Abuse screen: Denies threats or abuse. Denies injuries from another. Nutritional mg2 screening: No deficits noted. Tuberculosis screening: No symptoms or risk factors identified. Fall Risk None identified. Assessment: 14:55 General: Appears in no apparent distress. comfortable, Behavior is calm, cooperative. mg2 Pain: Complains of pain in abdomen Pain does not radiate. Pain currently is 4 out of 10 on a pain scale. Quality of pain is described as aching, Pain began gradually, Is intermittent. Neuro: Level of Consciousness is awake, alert, obeys commands, Oriented to person, place, time, situation. Cardiovascular: Capillary refill < 3 seconds Patient's skin is warm and dry. Respiratory: Airway is patent Respiratory effort is even, unlabored, Respiratory pattern is regular, symmetrical. GI: Reports lower abdominal pain. : post-sutured area, not infected, sutures loosened. EENT: No signs and/or symptoms were reported regarding the EENT system. Derm: Skin is intact, is healthy with good turgor, Skin is pink, warm \T\ dry. normal. Musculoskeletal: Circulation, motion, and sensation intact. Capillary refill < 3 seconds. 16:19 Reassessment: natalia drain was removed. discharged patient. dressing done. mg2 Vital Signs: 13:37 BP 129 / 86; Pulse 49; Resp 16; Temp 97.2; Pulse Ox 100% on R/A; Weight 83.01 kg; hb Height 5 ft. 7 in. (170.18 cm); Pain 2/10; 15:33 Pulse 60; Resp 18; Pulse Ox 100% on R/A; mg2 16:20 BP 154 / 95; Pulse 60; Resp 18; Temp 98; Pulse Ox 100% on R/A; mg2 13:37 Body Mass Index 28.66 (83.01 kg, 170.18 cm) hb ED Course: 13:25 Patient arrived in ED. rg4 13:37 Triage completed. hb 13:37 Arm band placed on. hb 14:40 Guanakito Pedroza, RN is Primary Nurse. mg2 14:55 Patient did not have IV access during this emergency room visit. mg2 14:56 Patient has correct armband on for positive identification. Pulse ox on. NIBP on. Door mg2 closed. Warm blanket given. 15:20 Alli Glasgow PA is PHCP. cp 15:20 Hugh Mckeon MD is Attending Physician. cp 16:17 No provider procedures requiring assistance completed. mg2 Administered Medications: No medications were administered Outcome: 15:56 Discharge ordered by MD. cp 16:21 Discharged to home ambulatory, with family. mg2 16:21 Condition: stable 16:21 Discharge instructions given to patient, family, Instructed on discharge instructions, follow up and referral plans. Demonstrated understanding of instructions, follow-up care. 16:21 Patient left the ED. mg2 Signatures: Alli Glasgow PA PA cp Nicole Mustafa RN RN Radha Mercedes rg4 Guanakito Pedroza RN RN mg2
[2018-11-16 16:26] VITALS: O2SAT 100
[2018-11-16 16:28] VITALS: BP 154/95; TEMP 98
== END 2018-11-16 16:21 | disposition home or self-care (01) ==
LOC: ER 13:22
DX: Z48.01 Encounter for change or removal of surgical wound dressing (principal)
CPT/HCPCS: 99283

== ENCOUNTER 2023-10-03 11:29 | Emergency (ER) | payer OTHER ==
[2023-10-03] MEDS ORDERED: HYDROCODONE/APAP 7.5/325 MG TAB ONE (13:16)
--- NOTE | 2023-10-03 14:54 | RAD REPORT ---
EXAM DESCRIPTION: Shoulder Right 2 View - 10/03/2023 1:50 pm CLINICAL HISTORY: PAIN COMPARISON: No comparisons TECHNIQUE: Internal and external rotation views of the right shoulder were obtained. FINDINGS: There is no acute displaced fracture. Caudal subluxation of the acromion relative to the d istal clavicle by less than 1 shaft width. Moderate AC joint degenerative changes. [id number] g lenohumeral joint degenerative changes are also noted. No acute or suspicious findings. IMPRESSION: Findings suggesting type 2 acromioclavicular joint separation as above. 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
--- NOTE | 2023-10-03 15:16 | EDPHYS ---
Physician Documentation [facility] Name: Tai Gonzales Jr Age: 73 yrs Sex: Male : 1950 Arrival Date: 10/03/2023 Time: 11:29 Bed 9 Private MD: ED Physician Maite Lazcano HPI: 10/02 12:53 This 73 yrs old Male presents to ER via Ambulatory with complaints of Fall Injury, sd2 Shoulder Injury. 12:53 73 yo M presents with CC of fall from a ladder today. Reports he lost his balance and sd2 slid down the ladder then fell to his side at the bottom but the ladder fell onto his right shoulder after that. No head injury or LOC. Ambulatory since the fall. No confusion or other areas of pain aside from his right shoulder. 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 Historical: - Allergies: 12:17 No Known Allergies; ap3 - Home Meds: 12:17 None [Active]; ap3 - Immunization history:: Client reports having NOT received the Covid vaccine. Last tetanus immunization: unknown, Flu vaccine is not up to date. - Infectious Disease History:: Denies. - Social history:: Smoking status: Patient denies any tobacco usage or history of. ROS: 12:53 Constitutional: Negative for fever, chills, and weight loss, Eyes: Negative for injury, sd2 pain, redness, and discharge, Cardiovascular: Negative for chest pain, palpitations, and edema, Respiratory: Negative for shortness of breath, cough, wheezing. Abdomen/GI: Negative for abdominal pain, nausea, vomiting, diarrhea. MS/Extremity: Positive for injury and deformity, Skin: Negative for injury, rash, and discoloration, Neuro: Negative for headache, numbness and tingling. Exam: 12:53 Constitutional: This is a well developed, well nourished patient who is awake, alert, sd2 and in no acute distress. Head/Face: Normocephalic, atraumatic. Eyes: EOMI, normal conjunctiva bilaterally Chest/axilla: Normal chest wall appearance and motion. Nontender with no deformity. Cardiovascular: Regular rate and rhythm with a normal S1 and S2. No gallops, murmurs, or rubs. 2+ distal pulses. Respiratory: Lungs have equal breath sounds bilaterally, clear to auscultation and percussion. No rales, rhonchi or wheezes noted. No increased work of breathing, no retractions or nasal flaring. Abdomen/GI: Soft, non-tender, with normal bowel sounds. No guarding or rebound. No evidence of tenderness throughout. Back: No spinal tenderness. No costovertebral tenderness. Full range of motion. Skin: Warm, dry with normal turgor. Normal color with no rashes, no lesions, and no evidence of cellulitis. MS/ Extremity: Pulses equal, no cyanosis. Neurovascular intact. Full, normal range of motion aside from R shoulder area with limited ROM 2/2 pain, obvious deformity present to R shoulder Psych: Awake, alert, with orientation to person, place and time. Behavior, mood, and affect are within normal limits. Vital Signs: 12:15 Pulse 112; Resp 18; Temp 98.1; Pulse Ox 100% ; Weight 74.84 kg; Height 5 ft. 7 in. ; ap3 Pain 10/10; 12:15 BP 153 / 102; ap3 15:23 BP 141 / 99; Pulse 67; Resp 16; Temp 98.1; Pulse Ox 95% ; me1 12:15 Body Mass Index 25.84 (74.84 kg, 170.18 cm) ap3 12:15 Pain Scale: Adult ap3 [place] Coma Score: 12:21 Eye Response: spontaneous(4). Motor Response: obeys commands(6). Verbal Response: ap3 oriented(5). Total: 15. Trauma Score (Adult): 12:22 Eye Response: spontaneous(1); Verbal Response: oriented(1); Motor Response: obeys ap3 commands(2); Systolic BP: > 89 mm Hg(4); Respiratory Rate: 10 to 29 per min(4); Ramana Score: 15; Trauma Score: 12 MDM: 12:25 Patient medically screened. sd2 12:53 Differential diagnosis: abrasion, closed head injury, contusion, fracture, laceration, sd2 multiple trauma, sprain, strain, among others. Data reviewed: vital signs, nurses notes, radiologic studies. I considered the following discharge prescriptions or medication management in the emergency department Medications were administered in the Emergency Department. See MAR. Historians other than the Patient: Spouse/Significant Other: at BS provides further history. 15:14 Counseling: I had a detailed discussion with the patient and/or guardian regarding the sd2 historical points, exam findings, and any diagnostic results supporting the discharge/admit diagnosis, radiology results, the need for outpatient follow up, to return to the emergency department if symptoms worsen or persist or if there are any questions or concerns that arise at home. ED course: XR consistent with grade 2 AC separation. Pt's pain controlled. Advised of results and need for outpatient follow up with Orthopedics. Pt and family comfortable with plan for discharge and verbalize understanding of strict return precautions. . 10/02 12:36 Order name: XRAY Shoulder RIGHT 2 view; Complete Time: 14:54 sd2 10/02 14:55 Order name: Sling; Complete Time: 15:15 sd2 Administered Medications: 13:22 Drug: Hydrocodone-Acetaminophen PO (7.5 mg-325 mg) 1 tabs PO once Route: PO; me1 15:15 Follow up: Response: No adverse reaction; Pain is decreased me1 Disposition Summary: 10/03/23 15:16 Discharge Ordered Problem: new sd2 Symptoms: have improved sd2 Condition: Stable sd2 Diagnosis - Acute Grade 2 Right AC Joint Separation sd2 - Right shoulder pain sd2 - Fall from ladder, initial encounter sd2 Followup: sd2 - With: Mark Anthony Hammond MD - When: 2 - 3 days - Reason: Recheck today's complaints, Continuance of care, Re-evaluation by your physician Discharge Instructions: - Discharge Summary Sheet sd2 - Acromioclavicular Separation sd2 - Acromioclavicular Separation Rehab-SportsMed sd2 Forms: - Medication Reconciliation Form sd2 - Antibiotic Education sd2 - Prescription Opioid Use sd2 - Patient Portal Instructions sd2 - Leadership Thank You Letter sd2 Prescriptions: - acetaminophen-codeine 300-15 mg Oral tablet - take 1 tablet ORAL route every 6 hours As needed as needed for pain; 12 tablet; sd2 Refills: 0, Product Selection Permitted Signatures: Dispatcher [employer] Angelica Muñoz RN RN [email or web address] Maite Lazcano MD MD sd2 Hayley Mooney RN RN me1
--- NOTE | 2023-10-03 15:16 | ER ---
Nurse's Notes [facility] Name: Tai Gonzales Jr Age: 73 yrs Sex: Male : 1950 Arrival Date: 10/03/2023 Time: 11:29 Bed 9 Private MD: Diagnosis: Acute Grade 2 Right AC Joint Separation;Right shoulder pain;Fall from ladder, initial encounter Presentation: 10/02 12:15 Chief complaint: Patient states: he was on a ladder when he fell onto wet dirt on his ap3 right side, and the ladder fell onto his left shoulder. patient complains of pain to his right shoulder. patient complains of pain as a 10/10 on the pain scale. Coronavirus screen: At this time, the client does not indicate any symptoms associated with coronavirus-19. Ebola Screen: No symptoms or risks identified at this time. Initial Sepsis Screen: Does the patient meet any 2 criteria? No. Patient's initial sepsis screen is negative. Does the patient have a suspected source of infection? No. Patient's initial sepsis screen is negative. Risk Assessment: Do you want to hurt yourself or someone else? Patient reports no desire to harm self or others. Onset of symptoms was October 03, 2023. 12:15 Method Of Arrival: Ambulatory ap3 12:15 Acuity: MONI 3 ap3 12:19 Care prior to arrival: None. Mechanism of Injury: Fall from ladder slipped down the 6 ap3 foot ladder. Trauma event details: Injury occurred in the [facility], Injury occurred: at home. Injury occurred: October 03, 2023. Triage Assessment: 12:18 General: Appears uncomfortable, Behavior is calm, cooperative, appropriate for age. ap3 Pain: Complains of pain in anterior aspect of right shoulder and posterior aspect of right shoulder Pain currently is 10 out of 10 on a pain scale. Pain began suddenly. Neuro: Level of Consciousness is awake, alert, obeys commands, Oriented to person, place, time, situation. Cardiovascular: Patient's skin is warm and dry. Respiratory: Airway is patent Respiratory effort is even, unlabored. Historical: - Allergies: 12:17 No Known Allergies; ap3 - Home Meds: 12:17 None [Active]; ap3 - Immunization history:: Client reports having NOT received the Covid vaccine. Last tetanus immunization: unknown, Flu vaccine is not up to date. - Infectious Disease History:: Denies. - Social history:: Smoking status: Patient denies any tobacco usage or history of. Screenin:19 [facility] ED Fall Risk Assessment (Adult) History of falling in the last 3 months, ap3 including since admission No falls in past 3 months (0 pts) Confusion or Disorientation No (0 pts) Intoxicated or Sedated No (0 pts) Impaired Gait No (0 pts) Mobility Assist Device Used No (0 pt) Altered Elimination No (0 pt) Score/Fall Risk Level 3 or more points = High Risk Oriented to surroundings, Maintained a safe environment, Educated pt \T\ family on fall prevention, incl call for assistance when getting out of bed, Assessed \T\ reinforced patient's understanding of fall precautions, Provided non-skid footwear, Hourly rounding (assess needs \T\ fall precautionary measures) done, Used ambulatory aids as needed (educated on \T\ assisted with), Used gait belt as appropriate Implemented a Fall Risk Plan of Care, Apply high fall risk patient identification: yellow non skid footwear/ fall signage, Placed fall mat w/ non beveled edge next to bed, Remained w/in arm's length of patient and in sight while toileting, Offered frequent toileting (1:1 observation), Remained with patient while ambulating, Utilized family, sitter, or virtual sprayer machine as indicated. Abuse screen: Denies threats or abuse. Nutritional screening: No deficits noted. Tuberculosis screening: No symptoms or risk factors identified. Primary Survey: 12:21 NO uncontrolled hemorrhage observed. Breathing/Chest: Spontaneous respiratory effort, ap3 equal unlabored respirations, breath sounds clear bilaterally, regular pattern, symmetrical chest rise and fall. Circulation: No external hemorrhage present. Regular and strong central pulse, skin warm/dry/normal color. Disability Pupils are equal, round, reactive to light and accommodation. Client is alert. Exposure/Environment: A warming method has been applied: A warm blanket has been provided to the patient. 15:24 Reassessment Alertness and Airway: Awake and alert. The airway is patent. Airway Patent me1 Breathing: Spontaneous respiratory effort, equal unlabored respirations, breath sounds clear bilaterally, regular pattern with symmetrical chest rise and fall. Circulation: No external hemorrhage noted. Regular and strong central pulse, skin warm/dry/normal color. Assessment: 13:31 General: Appears uncomfortable, slender, well developed, well nourished, Behavior is me1 calm, cooperative, appropriate for age, Reports fell off a ladder. c/o pain 10/10 to right shoulder. Pain: Complains of pain in posterior aspect of right shoulder and anterior aspect of right shoulder Pain does not radiate. Pain currently is 10 out of 10 on a pain scale. Quality of pain is described as sharp, Pain began suddenly, Is continuous. Neuro: Level of Consciousness is awake, alert, obeys commands, Oriented to person, place, time, situation, Appropriate for age. Cardiovascular: Patient's skin is warm and dry. Respiratory: Airway is patent Trachea midline Respiratory effort is even, unlabored, Respiratory pattern is regular, symmetrical. GI: No signs and/or symptoms were reported involving the gastrointestinal system. : No signs and/or symptoms were reported regarding the genitourinary system. EENT: No signs and/or symptoms were reported regarding the EENT system. Derm: Skin is intact, is healthy with good turgor, Skin is pink, warm \T\ dry. Musculoskeletal: Reports pain in posterior aspect of right shoulder and anterior aspect of right shoulder. Injury Description: fell off a ladder. Vital Signs: 12:15 Pulse 112; Resp 18; Temp 98.1; Pulse Ox 100% ; Weight 74.84 kg; Height 5 ft. 7 in. ; ap3 Pain 10/10; 12:15 BP 153 / 102; ap3 15:23 BP 141 / 99; Pulse 67; Resp 16; Temp 98.1; Pulse Ox 95% ; me1 12:15 Body Mass Index 25.84 (74.84 kg, 170.18 cm) ap3 12:15 Pain Scale: Adult ap3 [place] Coma Score: 12:21 Eye Response: spontaneous(4). Motor Response: obeys commands(6). Verbal Response: ap3 oriented(5). Total: 15. Trauma Score (Adult): 12:22 Eye Response: spontaneous(1); Verbal Response: oriented(1); Motor Response: obeys ap3 commands(2); Systolic BP: > 89 mm Hg(4); Respiratory Rate: 10 to 29 per min(4); Stacy Score: 15; Trauma Score: 12 ED Course: 11:32 Patient arrived in ED. mg5 11:48 Maite Lazcano MD is Attending Physician. sd2 12:17 Triage completed. ap3 12:21 Arm band placed on left wrist. ap3 12:22 Patient maintains SpO2 saturation greater than 95% on room air. ap3 13:15 Hayley Mooney, RN is Primary Nurse. me1 13:31 Patient has correct armband on for positive identification. Bed in low position. Call me1 light in reach. Side rails up X 1. Provided Education on: POC. Verbalized understanding. . 13:31 No provider procedures requiring assistance completed. me1 13:52 XRAY Shoulder RIGHT 2 view In Process Unspecified. EDMS 15:15 Mark Anthony Hammond MD is Referral Physician. sd2 15:24 Patient did not have IV access during this emergency room visit. me1 Administered Medications: 13:22 Drug: Hydrocodone-Acetaminophen PO (7.5 mg-325 mg) 1 tabs PO once Route: PO; me1 15:15 Follow up: Response: No adverse reaction; Pain is decreased me1 Medication: 13:31 VIS not applicable for this client. me1 Outcome: 15:16 Discharge ordered by . sd2 15:48 Discharged to home ambulatory, with family, me1 15:48 Condition: stable 15:48 Discharge instructions given to patient, family, Instructed on discharge instructions, follow up and referral plans. medication usage, Demonstrated understanding of instructions, follow-up care, medications, Prescriptions given X 1, 15:49 Patient left the ED. me1 Signatures: Dispatcher [employer] [facility] Angelica Valles RN RN ap3 Maite Lazcano MD MD az2 Hayley Mooney, RN RN me1 Beth De Anda mg5
[2023-10-03 16:50] VITALS: TEMP 98.1
[2023-10-03 16:51] VITALS: BP 141/99; O2SAT 95
== END 2023-10-03 15:49 | disposition home or self-care (01) ==
LOC: ER 11:29
DX: S43.121A Dislocation of right acromioclavicular joint, 100%-200% displacement, initial encounter (principal); W11.XXXA Fall on and from ladder, initial encounter
CPT/HCPCS: 99283